=== PATIENT | female | born 1960 | race Caucasian/White ===

== ENCOUNTER 2025-02-07 20:30 | Emergency (ER) | payer BC, SELFPAY ==
--- NOTE | 2025-02-07 | ECG_ITS ---
Test Reason : NEAR SYNCOPE Blood Pressure : */* mmHG Vent. Rate : 61 BPM Atrial Rate : 61 BPM P-R Int : 148 ms QRS Dur : 66 ms QT Int : 402 ms P-R-T Axes : -1 6 10 degrees QTcB Int : 404 ms Normal sinus rhythm Normal ECG No previous ECGs available Referred By: Generic ED Physician Electronically Signed By: JUHI DAVIS MD
--- NOTE | ~2025-02-07 | CT_ITS ---
CLINICAL HISTORY: right flank pain CT abdomen and pelvis without contrast Comparison: None Findings: Diffuse esophageal mural thickening, nonspecific. Hepatomegaly with steatosis. Partially calcified exophytic left upper pole renal cyst measuring 1.3 cm. Additional smaller left-sided simple appearing left renal cysts. If clinical concern persists consider follow-up MRI. No urolithiasis or hydronephrosis. Atrophic pancreas. There is indistinctness and diffuse mural thickening throughout the duodenal C sweep with scattered diverticuli, mural thickening and extensive fluid stranding. There is regional periduodenal hyperdense fluid stranding consistent with hemoperitoneum. No obvious free air. No bowel obstruction. Colonic diverticulosis without diverticulitis. Normal appendix. Superior endplate height loss at T10 and T11 with Schmorl's nodes. IMPRESSION: Findings concerning for possible duodenal injury with periduodenal hemoperitoneum and extensive inflammatory changes. Secondary pancreatitis and/or duodenal diverticulitis not excluded either. Clinical correlation is advised. This document has been electronically signed by: Kodak Araya MD on 02/07/2025 22:55:35
[2025-02-07 20:39] VITALS: BP 174/96; PULSE 79; RESP 17; TEMP 36.7; O2SAT 98; BMI 27.0
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
[2025-02-07 21:04] LABS: MANUAL DIFF FLAG NO
[2025-02-07 21:05] LABS: Basophils Percent Auto 0.4 % (0-2); Eosinophils Absolute Auto 0.1 X10*3/uL (0.0-0.4); Eosinophils Percent Auto 1.4 % (0-4); Hematocrit 37.3 % (37.0-47.0); Imm Gran Abs Auto 0.06 X10*3/uL (0.00-0.03); Imm Gran Pct Auto 0.8 % (0.0-0.4); Lymphocytes Absolute Auto 2.4 X10*3/uL (1.2-4.9); Lymphocytes Percent Auto 31.1 % (20-40); Mean Corpuscular HGB Conc 34.9 g/dl (31.0-35.0); Mean Corpuscular Hemoglobin 31.9 pg (27.0-33.0); Mean Corpuscular Volume 91.4 fL (80.0-98.0); Mean Platelet Volume 9.3 fL (9.4-12.3); Monocytes Absolute Auto 0.6 X10*3/uL (0.1-1.2); Monocytes Percent Auto 7.3 % (2-11); Neutrophils Absolute Auto 4.5 x10*3/uL (2.0-8.3); Platelet Count 254 X10*3/uL (160-400); Red Blood Count 4.08 X10*6/uL (4.20-5.50); Red Cell Distribution Width 13.2 % (11.0-16.0); White Blood Count 7.7 X10*3/uL (4.8-10.8)
[2025-02-07 21:06] LABS: Appearance Urine Clear; Color Urine Yellow; Glucose Urine UA Negative (Negative); Leukocyte Esterase Urine Negative (Negative); Nitrite Urine Negative (Negative); UMIC TRIGGER UACC YES; Urine Blood Small (1+) (Negative); Urine Ketones Negative (Negative); Urine Protein Negative (Neg-Trace)
[2025-02-07] MEDS: 0.9 % Sodium Chloride 1,000 ML 999 ML IV (21:12)
[2025-02-07] MEDS: Ketorolac Tromethamine 30 MG/ML VIAL IVPUSH (21:13)
[2025-02-07 21:15] VITALS: BP 154/91; PULSE 62; RESP 16; O2SAT 99
[2025-02-07 21:16] LABS: Bacteria Urine None Seen (None Seen); Hyaline Casts Urine 0-2 /LPF (0-2); Squamous Epithelial Cell Urine 0-2 /HPF (0-2); WBC Urine 0-5 /HPF (0-5)
[2025-02-07 21:19] LABS: Alanine Aminotransferase 40 U/L (0-31); Albumin Level 4.4 g/dL (3.5-5.0); Alkaline Phosphatase 62 U/L (39-117); Anion Gap 10 (12-20); Aspartate Amino Transferase 29 U/L (5-31); Bilirubin Total 0.4 mg/dL (0.0-1.0); Blood Urea Nitrogen 13 mg/dL (9-16); Calcium 9.4 mg/dL (8.4-10.2); Carbon Dioxide 25 mmol/L (22-29); Chloride 111 mmol/L (96-108); Creatinine Clr Calc Pharmacy 81.2; Estimated Glomerular Filt Rate > 60; Glucose Random 119 mg/dL (60-115); Lipase 28 U/L (8-78); Potassium 3.7 mmol/L (3.3-5.1); Sodium 142 mmol/L (135-145); Total Protein 6.8 g/dL (6.5-8.0)
[2025-02-07 22:24] LABS: Troponin-I High Sensitivity < 2.7 ng/L (<3.5-17.0)
[2025-02-07 23:13] VITALS: BP 141/81; PULSE 89; RESP 20; O2SAT 97
[2025-02-07] MEDS: Piperacillin Sodium/Tazobactam 3.375 GM in 0.9 % Sodium Chloride 50 ML IV (23:42)
--- NOTE | 2025-02-07 23:45 | PC.NURSE ---
pt ambulated with steady gait to/from the bathroom
[2025-02-08] LABS: Lactic Acid 1.6 mmol/L (0.5-2.0)
--- NOTE | 2025-02-08 00:02 | PC.NURSE ---
nurse to nurse report given to [facility]
[2025-02-08 01:02] VITALS: BP 141/81; PULSE 89; RESP 20; TEMP 36.7; O2SAT 97
== END 2025-02-08 01:05 | disposition short-term general hospital (02) ==
PROVIDERS: Physician Assistant; Physician Assistant Medical; Emergency Provider Emergency Medicine; PCP Pediatrics
DX: K66.1 Hemoperitoneum (principal); R10.9 Unspecified abdominal pain; K85.90 Acute pancreatitis without necrosis or infection, unspecified; S36.400A Unspecified injury of duodenum, initial encounter; V93.35XA Fall on board canoe or kayak, initial encounter; R11.2 Nausea with vomiting, unspecified; Y93.19 Activity, other involving water and watercraft; Y92.89 Other specified places as the place of occurrence of the external cause; Y99.9 Unspecified external cause status
CPT/HCPCS: 36415; 74176; 80053; 81001; 83605; 83690; 84484; 85025; 87040; 93005; 96361; 96365; 96375; 99285; J1885; J2543

== ENCOUNTER → 2025-02-07 21:07 | Outpatient (BNV) | payer BC, SELFPAY | PROVIDERS: Emergency Provider Emergency Medicine; PCP Pediatrics; Visit Provider Internal Medicine Cardiovascular Disease | DX: R55 Syncope and collapse (principal) | CPT/HCPCS: 93010 ==

== ENCOUNTER → 2025-02-07 21:27 | Outpatient (BNV) | payer BC, SELFPAY | PROVIDERS: Emergency Provider Emergency Medicine; PCP Pediatrics; Visit Provider Radiology Diagnostic Radiology | DX: R10.9 Unspecified abdominal pain (principal); K57.90 Diverticulosis of intestine, part unspecified, without perforation or abscess without bleeding | CPT/HCPCS: 74176 ==